=== PATIENT | female | born 1960 | race Caucasian/White ===

== ENCOUNTER → 2022-01-06 09:10 | Outpatient (CLI) | payer OTHER, SELFPAY ==
--- NOTE | 2022-01-06 | DI.MG.S_ITS ---
BILATERAL DIGITAL DIAGNOSTIC MAMMOGRAM 3D/2D: 01/06/2022 CLINICAL: Baseline exam. Left breast lump. Baseline exam. No prior exams were available for comparison. There are scattered fibroglandular elements in both breasts. There is a 2 cm mass with a spiculated margin in the left breast at 11 o'clock middle depth. This correlates as palpated. There is architectural distortion associated with the mass. No other significant masses, calcifications, or other findings are seen in either breast. IMPRESSION: INCOMPLETE: NEEDS ADDITIONAL IMAGING EVALUATION The 2 cm mass in the left breast most likely is carcinoma and is indeterminate. A targeted ultrasound is recommended and will immediately follow. This exam was interpreted at Station ID: [id number]. NOTE: For mammograms, a report in lay terms will be sent to the patient. Approximately 15% of breast malignancies will not be visualized mammographically. In the management of a palpable breast mass, a negative mammogram must not discourage biopsy of a clinically suspicious lesion. Electronically Signed By: Heath Mcgarry M.D. slc/:01/06/2022 10:15:11 ACR BI-RADS Category 0: Incomplete [id number]
--- NOTE | 2022-01-06 | DI.US.S_ITS ---
LIMITED ULTRASOUND OF LEFT BREAST AND AXILLA: 01/06/2022 CLINICAL: Patient returns today to evaluate a focal asymmetry in the left breast. Comparison is made to exam dated: 01/06/2022 [facility]. Color flow and real-time ultrasound of the left breast 11 o'clock, and axilla regions were performed. Smith scale images of the real-time examination were reviewed. There is a 1.7 cm x 1.5 cm x 0.8 cm mass with a spiculated margin in the left breast at 11 o'clock middle depth 4 cm from the nipple. This mass is hypoechoic. This correlates as palpated and with mammography findings. Color flow imaging demonstrates that there is no vascularity present. No significant abnormalities were seen sonographically in the left axilla. IMPRESSION: HIGHLY SUGGESTIVE OF MALIGNANCY The 1.7 cm x 1.5 cm x 0.8 cm mass in the left breast is highly suggestive of malignancy. An ultrasound guided biopsy is recommended. Exam findings were discussed with the patient by Dr. Collazo. This exam was interpreted at Station ID: [id number]. Electronically Signed By: Heath Mcgarry M.D. slc/:01/06/2022 10:35:47 letter sent: Biopsy Required Ultrasound BI-RADS: 5 Highly suggestive of malignancy
== END ==
PROVIDERS: PCP Family Medicine; Referring Provider Family Medicine; Visit Provider Family Medicine
DX: N63.22 Unspecified lump in the left breast, upper inner quadrant (principal); R92.8 Other abnormal and inconclusive findings on diagnostic imaging of breast
CPT/HCPCS: 76642; 77066; G0279

== ENCOUNTER → 2024-05-23 13:38 | Outpatient (CLI) | payer OTHER, SELFPAY | PROVIDERS: PCP Family Medicine; Referring Provider Nurse Practitioner Family; Visit Provider Surgery | DX: E11.621 Type 2 diabetes mellitus with foot ulcer (principal); L97.522 Non-pressure chronic ulcer of other part of left foot with fat layer exposed; R60.0 Localized edema; R23.4 Changes in skin texture; I73.9 Peripheral vascular disease, unspecified; I25.10 Atherosclerotic heart disease of native coronary artery without angina pectoris; Z79.01 Long term (current) use of anticoagulants | CPT/HCPCS: 99203; 99213 ==